=== PATIENT | male | born 1980 | race Hispanic/Latino ===

== ENCOUNTER 2021-05-06 10:57 | Emergency (ER) | payer OTHER ==
--- NOTE | 2021-05-06 13:04 | EDPHYS ---
Physician Documentation [facility] Name: Bashir Abreu Age: 40 yrs Sex: Male : 1980 Arrival Date: 05/06/2021 Time: 11:02 Bed 12 Private MD: ED Physician Yeyo Pereira HPI: 05/06 11:39 This 40 yrs old Male presents to ER via Ambulatory with complaints of pm1 Decreased hearing bilaterally. 11:39 The patient presents with decreased hearing bilaterally. The complaints affect the pm1 right ear and left ear. Onset: The symptoms/episode began/occurred 1 week(s) ago. Modifying factors: The symptoms are alleviated by nothing, the symptoms are aggravated by nothing. Associated signs and symptoms: Pertinent negatives: fever, pain. Severity of symptoms: in the emergency department the symptoms are unchanged. The patient has not experienced similar symptoms in the past. The patient has not recently seen a physician. Historical: - Allergies: 11:07 No Known Allergies; ap3 - Home Meds: 11:07 None [Active]; ap3 - PMHx: 11:07 None; ap3 - Immunization history:: Client reports having NOT received the Covid vaccine. Flu vaccine is not up to date. - Social history:: Smoking status: Reported history of juuling and/or vaping. ROS: 11:39 Constitutional: Negative for fever, chills, and weight loss. pm1 11:39 Cardiovascular: Negative for chest pain, palpitations, and edema, Respiratory: Negative for shortness of breath, cough, wheezing, and pleuritic chest pain, Skin: Negative for injury, rash, and discoloration, Neuro: Negative for headache, weakness, numbness, tingling, and seizure. 11:39 ENT: Positive for difficulty hearing bilaterally, Negative for drainage from ear(s), ear pain. 11:39 All other systems are negative. Exam: 11:39 Constitutional: This is a well developed, well nourished patient who is awake, alert, pm1 and in no acute distress. Head/Face: Normocephalic, atraumatic. 11:39 Skin: Warm, dry with normal turgor. Normal color with no rashes, no lesions, and no evidence of cellulitis. MS/ Extremity: Pulses equal, no cyanosis. Neurovascular intact. Full, normal range of motion. 11:39 ENT: External ear(s): are unremarkable, Ear canal(s): cerumen impaction, bilaterally, worse on the left than the right, TM's: not visable, bilaterally. 11:39 Cardiovascular: Exam negative for acute changes, Rate: normal, Rhythm: regular, Pulses: no pulse deficits are appreciated. 11:39 Respiratory: Exam negative for acute changes, respiratory distress, shortness of breath. 11:39 Neuro: Exam negative for acute changes, Orientation: is normal, Mentation: is normal, Motor: is normal, moves all fours, Gait: is steady, at a normal pace, without difficulty. 13:03 ENT: Ear canal(s): large quantity of cerumen removed from right ear and now canal is pm1 completely clear and clean, TM's: are normal, right ear. Vital Signs: 11:05 BP 132 / 97; Pulse 77; Resp 18; Temp 98.1; Pulse Ox 100% ; Weight 86.18 kg; Height 5 ap3 ft. 11 in. (180.34 cm); 13:11 BP 121 / 86; Pulse 68; Resp 18; Pulse Ox 100% on R/A; Pain 0/10; ss7 11:05 Body Mass Index 26.50 (86.18 kg, 180.34 cm) ap3 MDM: 11:26 Patient medically screened. pm1 12:28 Data reviewed: vital signs. Data interpreted: Pulse oximetry: on room air is 100 %. pm1 Interpretation: normal. 13:02 Counseling: I had a detailed discussion with the patient and/or guardian regarding: the pm1 historical points, exam findings, and any diagnostic results supporting the discharge/admit diagnosis, the need for outpatient follow up, an ENT specialist, to return to the emergency department if symptoms worsen or persist or if there are any questions or concerns that arise at home. Administered Medications: No medications were administered Disposition Summary: 05/06/21 13:03 Discharge Ordered Location: Home pm1 Problem: new pm1 Symptoms: have improved pm1 Condition: Stable pm1 Diagnosis - Impacted cerumen, bilateral pm1 Followup: pm1 - With: Emergency Department - When: As needed - Reason: Worsening of condition Followup: pm1 - With: Gloria Kan MD - When: 2 - 3 days - Reason: Recheck today's complaints, Continuance of care, Re-evaluation by your physician Discharge Instructions: - Discharge Summary Sheet pm1 - Earwax Buildup, Adult pm1 Forms: - Medication Reconciliation Form pm1 - Thank You Letter pm1 - Antibiotic Education pm1 - Prescription Opioid Use pm1 Addendum: 05/07/2021 23:59 Co-signature as Attending Physician, Yeyo Pereira MD I agree with the assessment and k dr plan of care. Signatures: Yeyo Pereira MD MD kdr Marinas, Patrick, NP INVESTOR RELATIONS SPECIALIST pm1 Haley Frazier RN RN ap3
--- NOTE | 2021-05-06 13:04 | ER ---
Nurse's Notes [facility] Name: Bashir Abreu Age: 40 yrs Sex: Male : 1980 Arrival Date: 05/06/2021 Time: 11:02 Bed 12 Private MD: Diagnosis: Impacted cerumen, bilateral Presentation: 05/06 11:05 Chief complaint: Patient states: patient reports hearing mostly muffled sounds ap3 bilaterally. He states this has happened in the past, and resolved after a few days. Patient denies pain at this time. Patient denies recent swimming or hot tub use. Coronavirus screen: At this time, the client does not indicate any symptoms associated with coronavirus-19. Ebola Screen: No symptoms or risks identified at this time. Initial Sepsis Screen: Does the patient meet any 2 criteria? No. Patient's initial sepsis screen is negative. Does the patient have a suspected source of infection? No. Patient's initial sepsis screen is negative. Risk Assessment: Do you want to hurt yourself or someone else? Patient reports no desire to harm self or others. Onset of symptoms was May 03, 2021. 11:05 Method Of Arrival: Ambulatory ap3 11:05 Acuity: CONSTANZA 4 ap3 Triage Assessment: 11:08 General: Appears in no apparent distress. comfortable, Behavior is calm, cooperative, ap3 appropriate for age. Pain: Denies pain. EENT: Reports decreased hearing ringing. Neuro: Level of Consciousness is awake, alert, obeys commands, Oriented to person, place, time, situation, Appropriate for age Moves all extremities. Gait is steady, Speech is normal. Cardiovascular: Patient's skin is warm and dry. Respiratory: Airway is patent Respiratory effort is even, unlabored, Respiratory pattern is regular, symmetrical. 12:23 General: Pt laying on right side. Soaking left ear awaiting providers return.. ss7 Historical: - Allergies: 11:07 No Known Allergies; ap3 - Home Meds: 11:07 None [Active]; ap3 - PMHx: 11:07 None; ap3 - Immunization history:: Client reports having NOT received the Covid vaccine. Flu vaccine is not up to date. - Social history:: Smoking status: Reported history of juuling and/or vaping. Screenin:09 Abuse screen: Denies threats or abuse. Nutritional screening: No deficits noted. ap3 Tuberculosis screening: No symptoms or risk factors identified. Fall Risk None identified. Assessment: 12:04 General: Appears in no apparent distress. comfortable, Behavior is calm, cooperative, ss7 Reports decreased hearing and bilateral ear cerumen impaction that began 1 week ago. Cardiovascular: No deficits noted. Respiratory: No deficits noted. GI: No deficits noted. : No deficits noted. EENT: Reports decreased hearing with bilateral cerumen impaction. No relief from otc serum remover which he tried on last night. . Derm: No deficits noted. Musculoskeletal: No deficits noted. 13:11 Reassessment: Patient states feeling better. Patient states symptoms have improved. Pt ss7 given dc instructions and VU. Ambulatory to check out with all personal belongings. . Vital Signs: 11:05 BP 132 / 97; Pulse 77; Resp 18; Temp 98.1; Pulse Ox 100% ; Weight 86.18 kg; Height 5 ap3 ft. 11 in. (180.34 cm); 13:11 BP 121 / 86; Pulse 68; Resp 18; Pulse Ox 100% on R/A; Pain 0/10; ss7 11:05 Body Mass Index 26.50 (86.18 kg, 180.34 cm) ap3 ED Course: 11:02 Patient arrived in ED. mr 11:07 Triage completed. ap3 11:09 Arm band placed on right wrist. ap3 11:09 Patient has correct armband on for positive identification. Call light in reach. Pulse ap3 ox on. NIBP on. 11:13 Cristian Arevalo NP is PHCP. pm1 11:13 Yeyo Pereira MD is Attending Physician. pm1 12:04 No provider procedures requiring assistance completed. ss7 13:03 Gloria Kan MD is Referral Physician. pm1 13:10 Patient did not have IV access during this emergency room visit. ss7 Administered Medications: No medications were administered Outcome: 13:03 Discharge ordered by . pm1 13:10 Discharged to home ambulatory. ss7 13:10 Condition: good 13:10 Discharge instructions given to patient, Demonstrated understanding of 13:11 Patient left the ED. ss7 Signatures: PortilloDominique mr Cristian Arevalo NP [employer]FFEE ROASTER HELPER pm1 Haley Frazier RN RN ap3 Guevara, Rhoda, RN RN ss7
[2021-05-06 13:24] VITALS: TEMP 98.1; O2SAT 100
[2021-05-06 13:25] VITALS: BP 121/86
== END 2021-05-06 13:11 | disposition home or self-care (01) ==
LOC: ER 10:57
DX: H61.23 Impacted cerumen, bilateral (principal)
CPT/HCPCS: 99283

== ENCOUNTER 2022-04-04 12:04 | Emergency (ER) | payer OTHER ==
--- NOTE | 2022-04-04 13:57 | ER ---
Nurse's Notes [facility] Name: Bashir Arbeu Age: 41 yrs Sex: Male : 1980 Arrival Date: 04/04/2022 Time: 12:09 Bed 14 Private MD: Diagnosis: Impacted cerumen, left ear Presentation: 04/04 12:24 Chief complaint: Patient states: last week I was in the shower and I lost hearing to bb the left ear, I am having sharp ear pains, we tried doing the ear wax remover scoop and a lot of wax out and i think i have an ear infection. Coronavirus screen: Vaccine status: Patient reports being unvaccinated. Client denies travel out of the [place] in the last 14 days. Ebola Screen: Patient negative for fever greater than or equal to 101.5 degrees Fahrenheit, and additional compatible Ebola Virus Disease symptoms Patient denies exposure to infectious person. Patient denies travel to an Ebola-affected area in the 21 days before illness onset. Initial Sepsis Screen: Does the patient meet any 2 criteria? No. Patient's initial sepsis screen is negative. Does the patient have a suspected source of infection? No. Patient's initial sepsis screen is negative. Risk Assessment: Do you want to hurt yourself or someone else? Patient reports no desire to harm self or others. 12:24 Method Of Arrival: Ambulatory bb 12:24 Acuity: CONSTANZA 4 bb Triage Assessment: 12:27 General: Appears in no apparent distress. slender, well groomed, well developed, bb Behavior is calm, cooperative, appropriate for age. Pain: Complains of pain in left ear. Historical: - PMHx: 12:27 None; bb - Immunization history:: Adult Immunizations up to date. - Social history:: Smoking status: Patient denies any tobacco usage or history of. Screenin:15 [facility] ED Fall Risk Assessment (Adult) History of falling in the last 3 months, bp including since admission No falls in past 3 months (0 pts). Abuse screen: Denies threats or abuse. Denies injuries from another. Nutritional screening: No deficits noted. Tuberculosis screening: No symptoms or risk factors identified. Assessment: 12:30 General: SEE TRIAGE NOTE. bp 14:15 Reassessment: PT DC HOME. bp Vital Signs: 12:24 BP 132 / 99; Pulse 89; Resp 18; Temp 98.2; Pulse Ox 100% ; Weight 88.45 kg; Height 5 bb ft. 11 in. (180.34 cm); Pain 6/10; 12:24 Body Mass Index 27.20 (88.45 kg, 180.34 cm) ED Course: 12:09 Patient arrived in ED. mr 12:20 Kristin hSannon FNP is [facility] 12:20 Derik Del Castillo MD is Attending Physician. [facility] 12:27 Triage completed. bb 12:27 Arm band placed on right wrist. bb 12:36 Raulito Lepe, RN is Primary Nurse. bp 14:15 Patient has correct armband on for positive identification. Bed in low position. Call bp light in reach. Side rails up X2. 14:15 No provider procedures requiring assistance completed. Patient did not have IV access bp during this emergency room visit. Administered Medications: No medications were administered Medication: 14:15 VIS not applicable for this client. bp Outcome: 13:56 Discharge ordered by . [facility] 14:15 Discharged to home ambulatory. bp 14:15 Condition: stable 14:15 Discharge instructions given to patient, Instructed on discharge instructions, follow up and referral plans. medication usage, Demonstrated understanding of instructions, follow-up care, medications, Prescriptions given X 2. 14:18 Patient left the ED. bp Signatures: Dominique Portillo mr HunterCindi, RN RN Raulito Posada, RN RN Kristin Shannon FNP FNP [facility]
--- NOTE | 2022-04-04 13:57 | EDPHYS ---
Physician Documentation [facility] Name: Bashir Abreu Age: 41 yrs Sex: Male : 1980 Arrival Date: 04/04/2022 Time: 12:09 Bed 14 Private MD: ED Physician Derik Del Castillo HPI: 04/04 12:30 This 41 yrs old Male presents to ER via Ambulatory with complaints of Ear Pain.jh7 12:30 The patient presents with hearing loss, partial, Cerumen impaction. The complaints jh7 affect the left ear. Onset: The symptoms/episode began/occurred 1 week(s) ago. Historical: - PMHx: 12:27 None; bb - Immunization history:: Adult Immunizations up to date. - Social history:: Smoking status: Patient denies any tobacco usage or history of. ROS: 12:30 Constitutional: Negative for fever, chills, and weight loss, Eyes: Negative for injury, jh7 pain, redness, and discharge, Cardiovascular: Negative for chest pain, palpitations, and edema, Respiratory: Negative for shortness of breath, cough, wheezing, and pleuritic chest pain, Skin: Negative for injury, rash, and discoloration, Neuro: Negative for headache, weakness, numbness, tingling, and seizure. 12:30 ENT: Positive for hearing loss. Exam: 12:30 Constitutional: This is a well developed, well nourished patient who is awake, alert, jh7 and in no acute distress. Head/Face: Normocephalic, atraumatic. Cardiovascular: Regular rate and rhythm with a normal S1 and S2. No gallops, murmurs, or rubs. Normal PMI, no JVD. No pulse deficits. Respiratory: Lungs have equal breath sounds bilaterally, clear to auscultation and percussion. No rales, rhonchi or wheezes noted. No increased work of breathing, no retractions or nasal flaring. Skin: Warm, dry with normal turgor. Normal color with no rashes, no lesions, and no evidence of cellulitis. MS/ Extremity: Pulses equal, no cyanosis. Neurovascular intact. Full, normal range of motion. Neuro: Awake and alert, GCS 15, oriented to person, place, time, and situation. Motor strength 5/5 in all extremities. Sensory grossly intact. Normal gait. 12:30 ENT: External ear(s): are unremarkable, Ear canal(s): cerumen impaction, that is moderate, that is hard, occluding the left ear canal, TM's: not visable, because of cerumen. Vital Signs: 12:24 BP 132 / 99; Pulse 89; Resp 18; Temp 98.2; Pulse Ox 100% ; Weight 88.45 kg; Height 5 bb ft. 11 in. (180.34 cm); Pain 6/10; 12:24 Body Mass Index 27.20 (88.45 kg, 180.34 cm) bb Procedures: 12:30 Ear irrigation: Route left ear with Normal Saline amount 250ml Patient tolerated well. [facility] MDM: 12:20 Patient medically screened. [facility] 12:30 Differential diagnosis: otitis media, ruptured TM, acute otalgia, cerumen impaction. [facility] Data reviewed: vital signs, nurses notes. I considered the following discharge prescriptions or medication management in the emergency department Prescribed amoxicillin (TM still partially obscured, will RX contingency abx) and Debrox. Counseling: I had a detailed discussion with the patient and/or guardian regarding: the historical points, exam findings, and any diagnostic results supporting the discharge/admit diagnosis, to return to the emergency department if symptoms worsen or persist or if there are any questions or concerns that arise at home. 04/04 12:30 Order name: Polo. Order: irrigate L ear; Complete Time: 14:06 [facility] Administered Medications: No medications were administered Disposition: 16:15 Co-signature as Attending Physician, Derik Del Castillo MD I reviewed the patient's care rt provided by the Advanced Practice Provider and agree with the diagnosis and treatment plan. Disposition Summary: 04/04/22 13:56 Discharge Ordered Location: Home [facility] Problem: new [facility] Symptoms: have improved [facility] Condition: Stable [facility] Diagnosis - Impacted cerumen, left ear [facility] Followup: [facility] - With: Private Physician - When: 2 - 3 days - Reason: Recheck today's complaints Discharge Instructions: - Discharge Summary Sheet 7 - Earwax Buildup, Adult [facility] - Ear Irrigation [facility] Forms: - Medication Reconciliation Form [facility] - Thank You Letter [facility] - Antibiotic Education [facility] Prescriptions: - Debrox 6.5 % Otic drops - instill 10 drop by OTIC route 2 times per day As needed; 1 bottle; Refills: 0, 7 Product Selection Permitted - Amoxicillin 875 mg Oral Tablet - take 1 tablet by ORAL route every 12 hours for 10 days; 20 tablet; Refills: 0, 7 Product Selection Permitted Signatures: Cindi Hunter RN RN bb Kristin Shannon, ELECTRICAL TESTER [facility]7 Derik Del Castillo MD MD rt
[2022-04-04 14:31] VITALS: BP 132/99; TEMP 98.2; O2SAT 100
== END 2022-04-04 14:18 | disposition home or self-care (01) ==
LOC: ER 12:04
PROC: 3E1B78Z Irrigation of Ear using Irrigating Substance, Via Natural or Artificial Opening (ICD-10-PCS; principal; 2022-04-04)
DX: H61.22 Impacted cerumen, left ear (principal)
CPT/HCPCS: 99282